=== PATIENT | male | born 1990 | race Hispanic/Latino ===

== ENCOUNTER 2017-10-31 02:40 | Emergency (ER) | payer SELFPAY ==
[2017-10-31 03:12] VITALS: BP 125/69; PULSE 89; RESP 16; TEMP 97.8; O2SAT 100
[2017-10-31] MEDS ORDERED: Sodium Chloride 0.9% 1,000 ML IV STA ×2 (03:19→05:10)
[2017-10-31 03:44] LABS: EOS % 0.2 % (0.0-4.0); HEMATOCRIT 47.9 % (35.0-51.0); LYMPH # 0.8 K/uL (1.0-4.3); LYMPH % 5.5 % (20.0-40.0); MEAN CORPUSCULAR HEMOGLOBIN 29.9 pg (27.0-31.0); MEAN PLATELET VOLUME 8.9 fl (7.2-11.7); MONO # 0.6 K/uL (0.0-0.8); MONO % 3.9 % (0.0-10.0); NEUT # 13.7 K/uL (1.8-7.0); NEUT % 90.4 % (50.0-75.0); PLATELET COUNT 224 K/uL (130-400); RED CELL DISTRIBUTION WIDTH 12.8 % (11.5-14.5); WHITE BLOOD COUNT 15.1 K/uL (4.8-10.8)
[2017-10-31 03:48] LABS: ALKALINE PHOSPHATASE 104 U/L (38-126); ALT/SGPT 54 U/L (21-72); AST/SGOT 43 U/L (17-59); BILIRUBIN,TOTAL 0.8 mg/dl (0.2-1.3); BLOOD UREA NITROGEN 15 mg/dl (9-20); CARBON DIOXIDE 27 mmol/L (22-30); CHLORIDE 103 mmol/L (98-107); GFR AFRICAN-AMERICAN > 60; GLUCOSE,RANDOM 118 mg/dL (75-110); POTASSIUM 4.1 MMOL/L (3.6-5.0); SODIUM 145 mmol/l (132-148); TOTAL PROTEIN 9.2 G/DL (6.3-8.2)
[2017-10-31 03:58] LABS: ALB/GLOB RATIO 1.4 (1.0-2.1)
[2017-10-31] MEDS ORDERED: Belladonna-Phenobarbital PO STA (04:17)
--- NOTE | 2017-10-31 04:39 | ED PDOC ---
HPI: Abdomen Time Seen by Provider: 10/31/17 03:11 Chief Complaint (Nursing): GI Problem Chief Complaint (Provider): Abdominal Pain History Per: Patient History/Exam Limitations: no limitations Onset/Duration Of Symptoms: Hrs (x 3) Outside of [place] travel?: No Current Symptoms Are (Timing): Still Present Additional Complaint(s): 27 year old male who presents to the ED complaining of abdominal pain, nausea and vomiting, onset 3 hours prior to arrival. Patient reports multiple episodes of non bloody, non bilious vomiting and felt shaky. Also reports having clear diarrhea. His entire abdomen feels sore, but admits that it is improving. PMD: none Past Medical History Reviewed: Historical Data, Nursing Documentation, Vital Signs Vital Signs: Last Vital Signs Temp 97.8 F 10/31/17 03:09 Pulse 89 10/31/17 03:09 Resp 16 10/31/17 03:09 BP 125/69 10/31/17 03:09 Pulse Ox 100 10/31/17 05:50 - Family History Family History: States: Unknown Family Hx - Social History Current smoker - smoking cessation education provided: No Alcohol: None Drugs: Denies - Home Medications Home Medications: Ambulatory Orders Medication Instructions Recorded Atropine/Hyoscyamine [] 1 tab PO QID PRN #15 tab 10/31/17 Ondansetron [Zofran] 4 mg PO Q8H #12 tab 10/31/17 - Allergies Allergies/Adverse Reactions: Allergies Allergy/AdvReac Type Severity Reaction Status Date / Time shellfish derived Allergy ANAPHYLAXIS Verified 10/31/17 03:12 Review of Systems ROS Statement: Except As Marked, All Systems Reviewed And Found Negative Gastrointestinal: Positive for: Nausea, Vomiting (non bloody, non bilious), Abdominal Pain, Diarrhea (clear) Physical Exam - Reviewed Nursing Documentation Reviewed: Yes Vital Signs Reviewed: Yes - Physical Exam Appears: Positive for: Uncomfortable Head Exam: Positive for: ATRAUMATIC, NORMAL INSPECTION, NORMOCEPHALIC Skin: Positive for: Normal Color, Warm, Dry Eye Exam: Positive for: EOMI, Normal appearance, PERRL Neck: Positive for: Normal, Painless ROM, Supple Cardiovascular/Chest: Positive for: Regular Rate, Rhythm. Negative for: Murmur Respiratory: Positive for: Normal Breath Sounds. Negative for: Respiratory Distress Gastrointestinal/Abdominal: Positive for: Normal Exam, Soft Back: Positive for: Normal Inspection. Negative for: L CVA Tenderness, R CVA Tenderness, Vertebral Tenderness Extremity: Positive for: Normal ROM. Negative for: Pedal Edema, Deformity Neurologic/Psych: Positive for: Alert, Oriented. Negative for: Motor/Sensory Deficits - Laboratory Results Result Diagrams: 10/31/17 03:37 10/31/17 03:37 - ECG O2 Sat by Pulse Oximetry: 100 (RA) Medical Decision Making Medical Decision Making: Time: 03:19 Impression: gastroenteritis Initial Plan: --BMP --LFT -- 2 tab PO --Sodium Chloride IV 1,000 mls/ hr --Toradol 15 mg IVP --Zofran Inj 4 mg IVP --Lipase 640AM After second liter of NS, patient reports he is feeling better. Tolerating PO and apple sauce. Will d/c home. Return precautions discussed. Scribe Attestation: Documented by Lashawn Freeman, acting as a scribe for Nba House MD Provider Scribe Attestation: All medical record entries made by the Scribe were at my direction and personally dictated by me. I have reviewed the chart and agree that the record accurately reflects my personal performance of the history, physical exam, medical decision making, and the department course for this patient. I have also personally directed, reviewed, and agree with the discharge instructions and disposition. Disposition - Clinical Impression Clinical Impression: Gastroenteritis - Patient ED Disposition Is Patient to be Admitted: No - Disposition Referrals: Kit Quintana [Outside] Disposition: Routine/Home Disposition Time: 06:42 Condition: IMPROVED Prescriptions: Atropine/Hyoscyamine [] 1 tab PO QID PRN #15 tab PRN Reason: Pain, Moderate (4-7) Ondansetron [Zofran] 4 mg PO Q8H #12 tab Instructions: Gastroenteritis (DC) Forms: [employer] (Chinese)
[2017-10-31 05:40] LABS: NEUTROPHIL 89 % (42-75)
[2017-10-31 05:42] LABS: TOTAL CELLS COUNTED 100
== END 2017-10-31 06:56 | disposition home or self-care (01) ==
LOC: H.ER 02:40
DX: K52.9 Noninfective gastroenteritis and colitis, unspecified (principal)
CPT/HCPCS: 80048; 80076; 83690; 85025; 96374; 96375; 99283; J1885; J2405; J7040